=== PATIENT | male | born 1955 | race Caucasian/White ===

== ENCOUNTER → 2017-08-05 | Outpatient (CLI) | payer BC ==
[~2017-08-05] VITALS: Ht 170.2 cm; Wt 121.6 kg
[~2017-08-05] MED LIST: AMBIEN 5MG TABLE5 MG PO; AVAPRO TAB150 MG/TAB PO; CORDARONE200 MG/TAB PO; FARXIGA10 PO; INSULIN 70/3100 U/ML SC; LIPITOR20 MG PO; LOFIBRA160 MG PO; LOPRESSOR 550 MG/TAB PO; NEXIUM 40MG40 MG PO; PACERONE200 MG PO; PRADAXA 150MG150 MG PO; PREDNISONE20 MG PO; PRINIVIL5 MG PO; TAPAZOLE5 MG PO; XARELTO20 MG PO
[2017-08-05 16:06] VITALS: BP 138/60; PULSE 60
== END ==
LOC: LIGHT 09:34
DX: E11.65 Type 2 diabetes mellitus with hyperglycemia (principal); G47.33 Obstructive sleep apnea (adult) (pediatric); I10 Essential (primary) hypertension; E78.5 Hyperlipidemia, unspecified; Z68.41 Body mass index [BMI] 40.0-44.9, adult; Z71.3 Dietary counseling and surveillance

== ENCOUNTER → 2017-08-19 | Outpatient (CLI) | payer BC | LOC: LIGHT 11:10 | DX: Z01.89 Encounter for other specified special examinations (principal) ==

== ENCOUNTER → 2017-09-09 | Outpatient (CLI) | payer BC ==
[~2017-09-09] VITALS: Ht 170.2 cm; Wt 121.1 kg
[~2017-09-09] MED LIST changes: +PAXIL 10MG10 MG PO
[2017-09-09 16:37] VITALS: BP 120/68; PULSE 60
== END ==
LOC: LIGHT 16:07
DX: E11.65 Type 2 diabetes mellitus with hyperglycemia (principal); G47.33 Obstructive sleep apnea (adult) (pediatric); I10 Essential (primary) hypertension; E78.5 Hyperlipidemia, unspecified; Z68.41 Body mass index [BMI] 40.0-44.9, adult; Z71.3 Dietary counseling and surveillance
CPT/HCPCS: G0463

== ENCOUNTER 2017-10-14 08:10 | Day surgery (SDC) | payer BC ==
[~2017-10-14] VITALS: Ht 170.2 cm; Wt 121.3 kg
[2017-10-14 08:29] VITALS: BP 157/71; PULSE 51; TEMP 97.6
[2017-10-14 10:35] VITALS: BP 144/64; PULSE 60; TEMP 97.5
[2017-10-14 10:50] VITALS: BP 125/65; PULSE 53
[2017-10-14 11:05] VITALS: BP 126/62; PULSE 56
== END 2017-10-14 11:34 | disposition home or self-care (01) ==
LOC: SDCO 08:10
DX: D12.2 Benign neoplasm of ascending colon (principal); D12.3 Benign neoplasm of transverse colon; K57.30 Diverticulosis of large intestine without perforation or abscess without bleeding; K64.0 First degree hemorrhoids; I10 Essential (primary) hypertension; E11.9 Type 2 diabetes mellitus without complications; I48.91 Unspecified atrial fibrillation; Z79.01 Long term (current) use of anticoagulants; Z79.4 Long term (current) use of insulin; Z80.0 Family history of malignant neoplasm of digestive organs
CPT/HCPCS: OP; J2250; J3010; J7030

== ENCOUNTER → 2017-10-27 | Outpatient (CLI) | payer BC | LOC: LIGHT 15:51 | DX: Z01.818 Encounter for other preprocedural examination (principal) ==

== ENCOUNTER → 2017-12-02 | Outpatient (CLI) | payer BC ==
[~2017-12-02] VITALS: Ht 170.2 cm; Wt 122.0 kg
[2017-12-02 16:45] VITALS: BP 124/70; PULSE 68
== END ==
LOC: LIGHT 11-04 15:43
DX: E11.65 Type 2 diabetes mellitus with hyperglycemia (principal); Z79.4 Long term (current) use of insulin; G47.33 Obstructive sleep apnea (adult) (pediatric); I10 Essential (primary) hypertension; E78.5 Hyperlipidemia, unspecified; Z68.41 Body mass index [BMI] 40.0-44.9, adult; Z71.3 Dietary counseling and surveillance

== ENCOUNTER → 2018-02-03 | Outpatient (CLI) | payer BC ==
[~2018-02-03] VITALS: Ht 170.2 cm; Wt 122.5 kg
[2018-02-03 17:05] VITALS: BP 140/64; PULSE 64
== END ==
LOC: LIGHT 16:36
DX: E11.65 Type 2 diabetes mellitus with hyperglycemia (principal); Z79.4 Long term (current) use of insulin; G47.33 Obstructive sleep apnea (adult) (pediatric); I10 Essential (primary) hypertension; E78.5 Hyperlipidemia, unspecified; Z68.41 Body mass index [BMI] 40.0-44.9, adult; Z71.3 Dietary counseling and surveillance
CPT/HCPCS: G0463

== ENCOUNTER → 2018-03-10 | Outpatient (CLI) | payer BC ==
[~2018-03-10] VITALS: Ht 170.2 cm; Wt 120.7 kg
[2018-03-10 16:46] VITALS: BP 138/50; PULSE 60
== END ==
LOC: LIGHT 01-06 15:32
DX: E11.65 Type 2 diabetes mellitus with hyperglycemia (principal); Z79.4 Long term (current) use of insulin; G47.33 Obstructive sleep apnea (adult) (pediatric); I10 Essential (primary) hypertension; E78.5 Hyperlipidemia, unspecified; Z68.41 Body mass index [BMI] 40.0-44.9, adult; Z71.3 Dietary counseling and surveillance
CPT/HCPCS: G0463

== ENCOUNTER 2020-12-03 01:09 | Emergency (ER) | payer BC ==
[~2020-12-03] VITALS: Ht 170.2 cm; Wt 136.4 kg
[2020-12-03 01:24] VITALS: TEMP 98.4
[2020-12-03 01:44] LABS: BASO % 0.3 % (0.0-2.0); EOS # 0.1 (0.0-0.7); EOS % 0.6 % (0-4.0); GRAN # 8.2 (1.4-6.5); GRAN % 75.5 % (42.2-75.2); LYMPH # 1.1 (1.2-3.4); LYMPH % 9.9 % (20.0-51.0); MEAN CELL VOLUME 83 fl (80.0-100.0); MEAN CORPUSCULAR HEMOGLOBIN 25 pg (27.0-31.0); MEAN CORPUSCULAR HGB CONC 30 g/dl (33.0-37.0); MEAN PLATELET VOLUME 8.7 fl (7.4-10.4); MONO # 1.4 (0.1-0.6); MONO % 13.1 % (1.7-9.3); PLATELET COUNT 333 K/mm3 (130-400); RED BLOOD COUNT 5.52 M/mm3 (4.20-5.60)
[2020-12-03 01:59] LABS: ALANINE AMINOTRANSFERASE 17 U/L (4-49); ALBUMIN 4.4 gm/dL (3.5-5.0); ALKALINE PHOSPHATASE 95 U/L (50-136); ANION GAP 10 mmol/L (7-16); AST,SGOT 22 U/L (15-37); BILIRUBIN,TOTAL 0.5 mg/dL (0.0-1.0); BLOOD UREA NITROGEN 22 mg/dL (9-20); C-REACTIVE PROTEIN 5.1 mg/dL (0.0-0.9); CALCIUM 9.3 mg/dL (8.4-10.2); CARBON DIOXIDE 26 mmol/L (22-30); CHLORIDE 100 mmol/L (98-107); CREATININE, serum 1.06 (0.66-1.25); GLUCOSE 171 mg/dL (74-106); LIPASE 42 U/L (23-300); POTASSIUM 4.5 mmol/L (3.4-5.0); SODIUM 136 mmol/L (137-145); TOTAL PROTEIN 8.9 gm/dL (6.4-8.2)
[2020-12-03 02:12] LABS: TROPONIN-I < 0.012 ng/mL (0.000-0.035)
[2020-12-03 02:50] VITALS: BP 132/76; PULSE 82
== END 2020-12-03 02:50 | disposition home or self-care (01) ==
LOC: COL.ER 01:09
PROVIDERS: Emergency Medicine
DX: G45.4 Transient global amnesia (principal); I50.9 Heart failure, unspecified; E11.9 Type 2 diabetes mellitus without complications; I48.20 Chronic atrial fibrillation, unspecified; Z79.4 Long term (current) use of insulin; Z79.01 Long term (current) use of anticoagulants

== ENCOUNTER → 2021-02-07 | Outpatient (CLI) | payer BC | LOC: COL.RAD 12:03 | DX: Z95.818 Presence of other cardiac implants and grafts (principal); I27.20 Pulmonary hypertension, unspecified | CPT/HCPCS: A9540; A9567 ==

== ENCOUNTER 2022-07-02 07:01 | Day surgery (SDC) | payer BC ==
[~2022-07-02] VITALS: Ht 170.2 cm; Wt 116.7 kg
[2022-07-02 07:25] VITALS: BP 148/80; PULSE 60; TEMP 97
[2022-07-02] MEDS ORDERED: HUMULIN R U-500 U/ML SQ (08:13)
[2022-07-02] MEDS ORDERED: TAPAZOLE5 MG PO (08:15)
[2022-07-02] MEDS ORDERED: LASIX 20MG TABL20 MG PO (08:15)
[2022-07-02] MEDS ORDERED: PROTONIX 40MG T40 MG PO (08:16)
[2022-07-02] MEDS ORDERED: PAXIL 20MG20 MG PO (08:17)
[2022-07-02] MEDS ORDERED: BETAPACE 80MG80 MG PO (08:19)
--- NOTE | 2022-07-02 08:45 | NUR ---
The patient's blood sugar was checked with blood obtained from his IV start with a result of 324. Miguel, EXTRUDER OPERATOR VERTICAL was notified of this result and orders were obtained to give the patient a dose of insulin based on the high dose insulin sliding scale.
--- NOTE | 2022-07-02 09:00 | NUR ---
The patient's blood sugar was rechecked at this time with a result of 296. Miguel, COMMUNICATIONS PROJECT MANAGER was notified of the result and is ok to proceed with the procedure.
[2022-07-02 09:52] VITALS: BP 133/66; PULSE 61
--- NOTE | 2022-07-02 09:53 | NUR ---
REPORT RECEIVED FROM ROSARIO GUERRA. PT TRANSFERRED FROM STRETHCER TO CHAIR WITH 2:1 ASSIST. SPOUSE AT BEDSIDE. VSS. PT A&OX3; DECLINES PO LIQUIDS OR CRACKERS AT THIS TIME. CALL WHALEN WITHIN REACH; SAFETY MAINTAINED.
--- NOTE | 2022-07-02 10:01 | NUR ---
DISCHARGE INSTRUCIONS GIVEN TO PT AND SPOUSE; QUESTIONS ANSWERED; UNDERSTANDING VERABLIZED. PT HAS CONTINUOUS BS MONITOR AND WILL CHECK BS WHEN HOME.
[2022-07-02 10:02] VITALS: BP 137/69; PULSE 61
[2022-07-02 10:13] VITALS: BP 136/72; PULSE 60
--- NOTE | 2022-07-02 10:18 | NUR ---
PT DISCHARGED OUT OF DEPT VIA WC WITH SPOUSE DRIVING. SAFETY MAINTAINED.
== END 2022-07-02 10:18 | disposition home or self-care (01) ==
LOC: SDCO 07:01
DX: Z12.11 Encounter for screening for malignant neoplasm of colon (principal); D12.2 Benign neoplasm of ascending colon; D12.0 Benign neoplasm of cecum; D12.3 Benign neoplasm of transverse colon; K57.30 Diverticulosis of large intestine without perforation or abscess without bleeding; K64.0 First degree hemorrhoids; K29.30 Chronic superficial gastritis without bleeding; E11.9 Type 2 diabetes mellitus without complications; E66.01 Morbid (severe) obesity due to excess calories; Z68.42 Body mass index [BMI] 45.0-49.9, adult
CPT/HCPCS: J1815; J2704; J7120

== ENCOUNTER → 2023-09-26 | Outpatient (CLI) | payer BC ==
[~2023-09-26] MED LIST changes: +Albuterol 0.083% Neb Soln 2.5 MG/3 ML UD IH ONE; +BETAPACE 80MG80 MG PO; +HUMULIN R U-500 U/ML SQ; +LASIX 20MG TABL20 MG PO; +PAXIL 20MG20 MG PO; +PROTONIX 40MG T40 MG PO
[2023-09-29 19:03] LABS: C-ANCA 15 U/mL (0-99)
[2023-10-04 19:10] LABS: ANGIOTENSIN CONVERTING ENZYME 65 U/L (14-82)
== END ==
LOC: COL.CARD 10:40 → COL.LAB 10:40 → COL.CARD 11:10
PROVIDERS: Internal Medicine Pulmonary Disease
DX: R06.02 Shortness of breath (principal); I27.20 Pulmonary hypertension, unspecified
CPT/HCPCS: A9540-JZ; A9567-JZ